=== PATIENT | female | born 2000 | race American Indian/Alaskan Native ===

== ENCOUNTER 2021-12-22 22:21 | Emergency (ER) | payer OTHER ==
[2021-12-23] MEDS ORDERED: ACETAMINOPHEN 325 MG TAB PO ONE (02:17)
[2021-12-23] MEDS ORDERED: IBUPROFEN 400 MG TAB PO ONE (02:17)
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
[2021-12-23 03:44] VITALS: BP 108/73
== END 2021-12-23 04:10 | disposition home or self-care (01) ==
LOC: ED 22:21
DX: S09.90XA Unspecified injury of head, initial encounter (principal); G44.309 Post-traumatic headache, unspecified, not intractable; M62.830 Muscle spasm of back; M54.2 Cervicalgia; V89.2XXA Person injured in unspecified motor-vehicle accident, traffic, initial encounter; Y93.89 Activity, other specified; Y92.488 Other paved roadways as the place of occurrence of the external cause; Y99.8 Other external cause status
CPT/HCPCS: 70450; 72125; 99283